=== PATIENT | female | born 1975 | race Caucasian/White ===

== ENCOUNTER → 2016-04-30 | Outpatient (CLI) | payer OTHER ==
[~2016-04-30] MED LIST: CARV3.122 PO; GABA-113 PO; GADAVIST IV PRN; NORETAB25 PO; TRAM-10 PO
--- NOTE | 2016-04-30 13:02 | DIAGNOSTIC IMAGING REPORT ---
MRI OF THE LUMBAR SPINE WITH AND WITHOUT CONTRAST CLINICAL HISTORY: Left sided sciatica. COMPARISON STUDY: No previous studies for comparison. TECHNIQUE: Utilizing a 1.5 Fauzia magnet and dedicated coil, multiplanar, multiecho imaging of the lumbar spine was performed before and after uneventful IV administration of 6.5 mL of Gadavist. FINDINGS: For purposes of numbering on this exam, the L5-S1 disc space is assigned to axial image 23 of 26. Vertebral body heights are maintained. There is no intracanalicular mass, fluid collection or abnormal enhancement. The conus terminates at the upper L1 level. Paravertebral soft tissues are unremarkable. L1-2: The central canal and neural foramen are patent. L2-3: The central canal and neural foramen are patent L3-4: The central canal and neural foramen are patent. L4-5: The central canal and neural foramen are patent. L5-S1: There is a large central/left paracentral disc protrusion that results in moderate narrowing of the central canal and marked narrowing of the left lateral recess. The neural foramen are patent. IMPRESSION: 1. Large central/left paracentral disc protrusion at L5-S1 that results in moderate narrowing of the central canal and marked narrowing of the left lateral recess. 2. Otherwise, unremarkable MRI of the lumbar spine. Electronically signed by: August Covington M.D. 04/30/2016 1:00 PM Dictated Date/Time: 04/30/2016 12:57 PM
== END | disposition home or self-care (01) ==
LOC: C.MRI 12:06
PROVIDERS: ATTEND Family Medicine
DX: M54.30 Sciatica, unspecified side (principal)

== ENCOUNTER → 2016-07-08 | Outpatient (CLI) | payer OTHER ==
[~2016-07-08] MED LIST changes: -GADAVIST IV PRN; +HYDR-5688 PO
== END | disposition home or self-care (01) ==
LOC: C.PAPS 10:50
PROVIDERS: ATTEND Obstetrics & Gynecology
DX: Z01.419 Encounter for gynecological examination (general) (routine) without abnormal findings (principal)

== ENCOUNTER 2016-07-23 11:10 | Observation (INO) | payer OTHER ==
[2016-07-09 15:20] VITALS: BMI 24.0
[2016-07-10 14:44] LABS: BASO % 0.3 %; BASO ABS # 0.03 K/uL (0-0.2); COMPLETE YES; EOS % 2.4 %; HEMATOCRIT 40.3 % (37-47); IG% 0.3 %; LYMPH % 24.3 %; LYMPH ABS # 2.48 K/uL (1.2-3.4); MEAN CELL VOLUME 92.2 fL (80-100); MEAN CORPUSCULAR HEMOGLOBIN 30.9 pg (25-34); MEAN CORPUSCULAR HGB CONC 33.5 g/dl (32-36); MEAN PLATELET VOLUME 12.5 fL (7.4-10.4); MONO % 4.3 %; NEUT % 68.4 %; PLATELET COUNT 247 K/uL (130-400); RED BLOOD COUNT 4.37 M/uL (4.2-5.4); WHITE BLOOD COUNT 10.21 K/uL (4.8-10.8)
[2016-07-10 14:46] LABS: PREG INTERNAL NEGATIVE QC NEG CLEAR BACKGROUND; PREG INTERNAL POSITIVE QC POS CONTROL LINE
--- NOTE | 2016-07-22 12:16 | HISTORY & PHYSICAL EXAMINATION ---
DATE OF ADMISSION: 07/23/2016 CHIEF COMPLAINT: Back and lower extremity difficulty, paresthesias, numbness, tingling. She has a large disc herniation, left hand side L5-S1. She is set for surgery L5-S1 discectomy without fusion at [facility] on the . PAST MEDICAL HISTORY: Positive for asthma, contact dermatitis, hypertension, migraine. SOCIAL HISTORY: Negative smoking, negative EtOH. MEDICATIONS: Include control pill called Ortho, Micronor, Coreg, and tramadol. REVIEW OF SYSTEMS: She denies any fever, sweats, chills, any bowel and bladder incontinence. No urgency, frequency, dysuria. Denies any chest pain, angina. Denies asthma, wheezing, shortness of breath. Her major positive review is her musculoskeletal, issues with back and lower extremity difficulties consistent with her herniation. PAST SURGICAL HISTORY: Laparoscopy and wisdom teeth. PHYSICAL EXAMINATION: GENERAL: She is 5 feet 3 inches, 128 pounds. She is in distress. VITAL SIGNS: Blood pressure 130/80, pulse of 80, respiratory rate 16. HEENT: Pupils react to light and accommodation. Ear, nose and throat clear. CARDIAC: Normal S1, S2. No S3. ABDOMEN: Soft, nontender. MUSCULOSKELETAL: She has decreased range of motion, flexion and extension. She has significant pain with straight leg raising. She has an absent Achilles reflex on the left hand side. Motor loss atrophy as well. IMAGES: Reviewed. She has a large disc herniation of lumbar spine L5-S1. DISPOSITION: Includes: 1. Instructions, precautions, education as to her pathology. 2. She is scheduled for surgery, lumbar spine discectomy at L5-S1 on the left hand side at [facility].
[~2016-07-23] VITALS: Ht 162.6 cm; Wt 62.7 kg
--- NOTE | 2016-07-23 09:51 | History & Physical Bridge Note ---
H&P Re-Evaluation Bridge Note: I have examined the patient, reviewed the History & Physical and in the interval since the performance of the History & Physical I have noted the following changes of clinical significance: No changes noted
[~2016-07-23 11:10] MED LIST changes: +CEFAZOLIN 2000 MG/60 ML D5W 60 ML IV SCH; -HYDR-5688 PO; +LACTATED RINGER'S 1000ML 1,000 ML IV SCH; +NSS 1000ML IV SCH
[2016-07-23 11:30] VITALS: BP 160/90; PULSE 66; TEMP 37; O2SAT 100; Ht 162.6 cm; Wt 62.7 kg
[2016-07-23] MEDS ORDERED: LIDOCAINE HCL 2% 2 ML VIAL (20MG/ML) ONE (12:02)
[2016-07-23] MEDS ORDERED: ROCURONIUM BROMIDE 10 MG/ML 5 ML VIAL ONE (12:02)
[2016-07-23] MEDS ORDERED: PROPOFOL IV EMULSION 10 MG/ML 20 ML VIAL IV ONE (12:02)
[2016-07-23] MEDS ORDERED: FENTANYL CITRATE INJ 50 MCG/1 ML 2 ML VIAL ONE ×2 (12:03)
[2016-07-23] MEDS ORDERED: MIDAZOLAM HCL 1 MG/ML 2ML VIAL ONE (12:03)
[2016-07-23] MEDS ORDERED: MoRPHine SULFATE 4 MG/ML 1 ML CARP\\VIAL IV STA (13:09)
[2016-07-23] MEDS ORDERED: ONDANSETRON INJ 2 MG/ML 2 ML VIAL IV STA (13:10)
[2016-07-23] MEDS ORDERED: LACTATED RINGER'S 1000ML 1,000 ML IV PRN (13:12)
[2016-07-23] MEDS ORDERED: MoRPHine SULFATE 10 MG/ML CARP/VIAL IV PRN (13:15)
[2016-07-23] MEDS ORDERED: HYDROmorphone INJ 1 MG/ML SYR IV PRN ×2 (13:15→15:15)
[2016-07-23] MEDS ORDERED: DiphenhydrAMINE HCL 50 MG/ML VIAL IV PRN (13:15)
[2016-07-23] MEDS ORDERED: SCOPOLAMINE 1.5 MG TDSY TD ONE ×2 (13:15→13:17)
[2016-07-23] MEDS ORDERED: MoRPHine SULFATE 4 MG/ML 1 ML CARP\\VIAL ONE (13:16)
[2016-07-23] MEDS ORDERED: ONDANSETRON INJ 2 MG/ML 2 ML VIAL ONE ×2 (13:17→13:59)
[2016-07-23] MEDS ORDERED: VANCOMYCIN HCL 1000MG/20ML VIAL ONE (13:32)
[2016-07-23] MEDS ORDERED: BUPIVACAINE/EPINEPHRINE 0.5% MPF 1:200,000 30 ML VIAL ONE (13:32)
[2016-07-23] MEDS ORDERED: GELATIN SPONGE SZ 100 ONE (13:32)
[2016-07-23] MEDS ORDERED: THROMBIN FOR SOLN 20000 UNIT KIT ONE (13:32)
[2016-07-23] MEDS ORDERED: BACITRACIN 50000 UNIT VIAL ONE (13:33)
[2016-07-23] MEDS ORDERED: METOCLOPRAMIDE HCL INJ 5 MG/ML 2 ML VIAL ONE (13:59)
[2016-07-23] MEDS ORDERED: DEXAMETHASONE SOD INJ 4 MG/ML VIAL ONE (13:59)
[2016-07-23] MEDS ORDERED: DiphenhydrAMINE HCL 50 MG/ML VIAL ONE (13:59)
[2016-07-23] MEDS ORDERED: GLYCOPYRROLATE INJ 0.2 MG/ML VIAL ONE (14:30)
[2016-07-23] MEDS ORDERED: NEOSTIGMINE METHYLSULFATE 5 MG/5 ML SYR ONE (14:30)
--- NOTE | 2016-07-23 14:31 | DIAGNOSTIC IMAGING REPORT ---
INTRAOPERATIVE RADIOGRAPH CLINICAL HISTORY: L5-S1 discectomy. Fluoroscopy time: 3 seconds. FINDINGS: A single spot fluoroscopic view of the lower lumbar spine is presented. A surgical probe projects posteriorly at L5-S1. IMPRESSION: Intraoperative image from L5 -S1 discectomy as above. Electronically signed by: Manpreet Watts M.D. 07/23/2016 2:29 PM Dictated Date/Time: 07/23/2016 2:28 PM
--- NOTE | 2016-07-23 15:04 | [facility] Post Operative Brief Note ---
Immediate Operative Summary Operative Date Jul 23, 2016. Pre-Operative Diagnosis large disc herniation of lumbar spine L5-S1 Post-Operative Diagnosis large disc herniation of lumbar spine L5-S1 Procedure(s) Performed L5-S1 Discectomy Surgeon Dr. Brad Levi Informatics Scientist Surgeon(s) Carson Mayorga PA-C Estimated Blood Loss 30ML Findings disc herniation Specimens none per surgeon Dr. Brad Levi Complication(s) None Disposition Recovery Room / PACU
[2016-07-23] MEDS ORDERED: ACETAMINOPHEN 325 MG TAB PO PRN (15:15)
[2016-07-23] MEDS ORDERED: HYDROmorphone INJ 2 MG/ML SYR/VIAL IV PRN (15:15)
[2016-07-23] MEDS ORDERED: OXYCODONE/ACETAMINOPHEN 5-325 TAB PO PRN (15:15)
[2016-07-23] MEDS ORDERED: PROMETHAZINE HCL INJ 12.5 MG in SODIUM CHLORIDE 0.9% 50ML 50 ML IV PRN (15:15)
[2016-07-23] MEDS ORDERED: LORAZEPAM INJ 1 MG in SYRINGE 0 ML IV PRN (15:15)
[2016-07-23] MEDS ORDERED: LORAZEPAM 1 MG TAB PO PRN (15:15)
[2016-07-23] MEDS ORDERED: MAGNESIUM HYDROXIDE SUSP 30 ML UDC PO PRN (15:15)
[2016-07-23] MEDS ORDERED: ONDANSETRON INJ 2 MG/ML 2 ML VIAL IV PRN (15:15)
[2016-07-23] MEDS ORDERED: HYDROCODONE/ACETAMOPHEN 5/325MG TAB PO PRN ×2 (15:15)
[2016-07-23] MEDS ORDERED: METOCLOPRAMIDE HCL INJ 5 MG/ML 2 ML VIAL IV PRN (15:15)
--- NOTE | 2016-07-23 15:17 | OPERATIVE REPORT ---
DATE OF OPERATION: 07/23/2016 PREOPERATIVE DIAGNOSIS: Disk herniation L5-S1, left. POSTOPERATIVE DIAGNOSIS: Same. PROCEDURE: Discectomy L5-S1, left. SURGEON: Dr. Levi. COMPLICATIONS: Zero. BLOOD LOSS: 30 mL. [employer] LEVERMAN: Carson Mayorga PA-C. ANESTHETIC: General. DESCRIPTION OF PROCEDURE: The patient was taken to the operating room and general intubated anesthetic provided to the patient, placed prone, prepped and draped sterile. We made a skin incision, fascial incision, brought in C-arm for localization. We did an upbiting laminotomy, downbiting laminotomy and foraminotomy, we retracted the nerve root medial direction, did a partial mini facetectomy, took off the ligamentum flavum. The disk herniation was significant right underneath the S1 nerve root. We did use a 15 scalpel blade, various types pituitary rongeurs and getting out of free fragment disk. I probed, we looked for any type of free fragments, no more to be found. We then irrigated thoroughly, closed over a fat graft with vancomycin powder and Hemovac drain with 1 Vicryl suture, 2-0 in the subcuticular layer, 3-0 nylon on the skin, sterile dressing applied. The patient returned to PACU stable. No apparent interoperative complications. Sponge and needle count correct at the close. I attest to the content of the Intraoperative Record and any orders documented therein. Any exceptio ns are noted below.
[2016-07-23] MEDS: FENTANYL CITRATE INJ 50 MCG/1 ML 2 ML VIAL IV PRN ×2 (15:32→15:37)
--- NOTE | 2016-07-23 15:40 | Anesthesiology Progress Note ---
Anesthesia Post Op Note Date & Time Jul 23, 2016 at 15:38 Vital Signs Pain Intensity: 5 Vital Signs Past 12 Hours Date Time Temp Pulse Resp B/P Pulse Ox O2 Delivery O2 Flow Rate FiO2 07/23/16 15:35 64 15 129/83 100 Mask 10 07/23/16 15:25 73 17 123/80 100 Mask 10 07/23/16 15:15 36.1 84 16 126/71 100 Mask 10 07/23/16 11:30 37 66 16 160/90 100 Room Air Notes Mental Status: alert / awake / arousable, participated in evaluation Pt Amnestic to Procedure: Yes Nausea / Vomiting: adequately controlled Pain: adequately controlled Airway Patency, RR, SpO2: stable & adequate BP & HR: stable & adequate Hydration State: stable & adequate Anesthetic Complications: no major complications apparent Pt doing well. Radicular pain that she had pre-op is gone; now only with back pain which is improving. No nausea.
[2016-07-23] MEDS ORDERED: IV FLUIDS COMPLETED PRN (16:00)
[2016-07-23 16:15] VITALS: O2SAT 100
[2016-07-23 16:56] VITALS: BP 136/83; PULSE 79; TEMP 37; O2SAT 98
[2016-07-23] MEDS: OXYCODONE/ACETAMINOPHEN 5-325 TAB PO PRN ×2 (17:05→22:16)
[2016-07-23] MEDS: SODIUM CHLORIDE 0.9% 1000ML 1,000 ML IV SCH (17:10)
[2016-07-23 18:15] VITALS: BP 125/76; PULSE 72; TEMP 37.1; O2SAT 95
[2016-07-23] MEDS: KETOROLAC TROMETHAMINE 30 MG/ML VIAL IV SCH ×2 (18:16→23:44)
[2016-07-23 19:31] VITALS: BP 120/70; PULSE 78; TEMP 37.3; O2SAT 97
[2016-07-23] MEDS: GABAPENTIN 300 MG CAP PO SCH (20:34)
[2016-07-23] MEDS ORDERED: CARVEDILOL 3.125 MG TAB PO SCH (21:00)
[2016-07-23] MEDS ORDERED: NORETHINDRONE PO SCH (21:00)
[2016-07-23] MEDS: CEFAZOLIN IV 1,000 MG in DEXTROSE 5% 50ML 50 ML IV SCH (22:14)
[2016-07-23] MEDS: DEXAMETHASONE INJ 10 MG in SYRINGE 0 ML IV SCH (22:14)
[2016-07-23 23:10] VITALS: BP 96/60; PULSE 58; TEMP 36.7; O2SAT 94
[2016-07-24] MEDS: SODIUM CHLORIDE 0.9% 1000ML 1,000 ML IV SCH (03:12)
[2016-07-24] MEDS: OXYCODONE/ACETAMINOPHEN 5-325 TAB PO PRN ×3 (03:16→14:43)
[2016-07-24 03:29] VITALS: BP 97/60; PULSE 62; TEMP 36.8; O2SAT 98
[2016-07-24] MEDS ORDERED: BISACODYL 10 MG SUPP PR PRN (06:00)
[2016-07-24] MEDS ORDERED: BISACODYL 5 MG TABEC PO PRN (06:00)
[2016-07-24] MEDS: CEFAZOLIN IV 1,000 MG in DEXTROSE 5% 50ML 50 ML IV SCH ×2 (06:07→13:45)
[2016-07-24] MEDS: DEXAMETHASONE INJ 10 MG in SYRINGE 0 ML IV SCH ×2 (06:08→13:45)
[2016-07-24] MEDS: KETOROLAC TROMETHAMINE 30 MG/ML VIAL IV SCH ×2 (06:08→12:28)
[2016-07-24 07:06] VITALS: BP 104/67; PULSE 59; TEMP 36.6; O2SAT 100
--- NOTE | 2016-07-24 07:32 | Discharge Instructions ---
Discharge Instructions Date of Service Jul 24, 2016. Admission Reason for Admission: Lumbar Disc Herniation L5-S1 Discharge Discharge Diagnosis / Problem: same Discharge Goals Goal(s): Improve function Activity Recommendations Activity Limitations: as noted below Lifting Limitations: until after follow-up appointment Exercise/Sports Limitations: until after follow-up appointment May Resume Sexual Activity: after follow-up appointment Shower/Bathe: keep incision dry Driving or Machine Use: home, rest, recover . Instructions / Follow-Up Instructions / Follow-Up MEDICATIONS: Please take your prescriptions as instructed at your pre-op appointment. SPECIAL CARE: The following information is intended to answer some of the common questions and concerns regarding your surgery. Each patient is an individual and receives individual counselling throughout the course of treatment, from diagnosis to surgery all the way through recovery. What follows is not an exhaustive list, but should be a useful guide to some of the common questions and concerns patients have regarding their surgeries. These are not provided to keep you from calling us; rather, they give you something accurate and concrete to reference as you recover from your procedure. If you need us, we are available to you. As always, if you are not sure about something, call us at [phone]. MEDICAL EMERGENCIES: For these conditions, call 911 or go to your local hospital-based Emergency Department - not [facility] or equivalent. * Paralysis * Severe chest pain or difficulty breathing * Swelling or redness of either leg Spine procedures can be rather complex and though complications are rare, they do occur. In such cases, effective advice regarding emergency situations cannot always be addressed over the telephone. You may be referred to the emergency department for more effective management of your problem. Activity Limitations: It is important to give your body time to heal, so please limit your activities : * In general, don't do anything that moves your spine too much. You should avoid contact sports, twisting or heavy lifting while you recover. * 5-10 pounds is all you should attempt to lift. * You should not plan on driving for approximately 3 weeks and you should avoid traveling more than 30-45 minutes at a time. Longer trips should be broken down with walking breaks spaced appropriately. * Physical therapy is not usually required. * Walking and good posture practices will help you recover and regain your function. * Avoid straining or sudden changes in position. * In general, the goal is to take it easy and recover. Don't cause any new problems. Just relax. Showers: * Do not take a bath, use a Jacuzzi or hot tub or otherwise submerge your incision. * It is usually safe to take a shower 4-5 days after your surgery. * Your incision does not require any special creams or ointments. * Simply clean it with soap and water, dry and re-dress with a clean bandage afterwards. Incision: * Keep incision clean, dry and protected until your first follow-up appointment. * Some amount of drainage and redness is normal. Any drainage should be fairly clear and not have a foul odor. * If you feel anything is wrong or you have excessive drainage, please call us. * Your stitches and alex will be removed 10-14 days after your surgery. At the time of your first post-op visit. * Neck surgeries are typically closed with a suture underneath the skin. The steri-strips over the incision should be maintained until we see you in the office. Bracing: * You may be provided with a back or neck brace to encourage good posture and prevent injury. It will remind you not to do too much as you heal and will alert others to the fact that you have had a surgery. * Back braces may be removed for showers and when you are resting at home. They must be worn when you are walking around for any period of time or for travel. * For neck surgery, you will likely be provided with two cervical collars. The soft collar ([place] or foam rubber) is worn most commonly throughout the day and while sleeping. The plastic collar (provided at the hospital) is for showering/bathing. * Except while eating, collars should remain in place. More specifically, bracing is provided for a purpose and should be worn. * Please obtain your brace or collars prior to your operation and bring them to the hospital with you on the day of surgery. * You should also bring your collars to your post-op appointment with Dr. Levi. You should always take good care of your body and practice healthy habits, especially following surgery. You should: * Follow your doctor's treatment plan * Sit and stand properly with good posture (ears over shoulders, shoulders over hips) Don't slouch * Learn to lift correctly * Exercise regularly (low-impact aerobic exercise is especially good, but check with your doctor first) * Generally, be up and walking for 5-10 minutes at a time at least 3-4 times per day from the day you get home * Increasing walking to tolerance until you can walk for 20-30 minutes at a time * Attain and maintain a healthy body weight * Eat healthy foods ( a well-balanced, low-fat diet rich in fruits and vegetables) and get enough calcium * Avoid excessive use of alcohol When to call our office - If you notice any of the following: * Increased pain not relieve by pain medicine * Fevers greater then 100 degrees F, chills or flu symptoms * Increased redness around incision * Drainage from the incision that is not clear * Any foul smelling drainage * Swelling or fluid collection beneath the skin Miscellaneous: * In the hospital, you may be given a walker or cane for support while walking. These are temporary needs and are intended to prevent injuries due to falls. You may discontinue them when you feel strong and steady enough on your feet. * Sleep in a comfortable position. We find that many patients find a lounge chair or recliner with several pillows to be beneficial in the early post-operative period. * The support stockings should be used for 7-10 days and may be discontinued when you are back to walking more and conducting usual household activities. No problem is insignificant. We are here to help you and get you well. Contact us at [phone]. Definitions: Foraminotomy: If part of the disc or a bone spur (osteophyte) is pressing on a nerve as it leaves the vertebra (through an exit called the foramen), a foraminotomy may be done. Otomy means "to make an opening." A foraminotomy is making the opening of the foramen larger, so the nerve can exit without being compressed. Laminotomy: Similar to the foraminotomy, a laminotomy makes a larger opening, this time in your bony plate protecting your spinal canal and spinal cord (the lamina). The lamina may be pressing on your nerve, so the surgeon may make more room for the nerves using a laminotomy. Laminectomy: Sometimes, a laminotomy is not sufficient. The surgeon may need to remove all or part of the lamina. This procedure is called a laminectomy. This can often be done at many levels without any harmful effects. Current Hospital Diet Patient's current hospital diet: Regular Diet Discharge Diet Recommended Diet: Regular Diet Procedures Procedures Performed: L5-S1 Discectomy Pending Studies Studies pending at discharge: no Medical Emergencies . Who to Call and When: Medical Emergencies: If at any time you feel your situation is an emergency, please call 911 immediately. . Non-Emergent Contact Non-Emergency issues call your: Surgeon . "Provider Documentation" section prepared by Brad Levi. . VTE Core Measure Inpt VTE Proph given/why not?: Treatment not indicated
--- NOTE | 2016-07-24 08:02 | Anesthesiology Progress Note ---
Anesthesia Post Op Note Date & Time Jul 24, 2016 at 08:01 Vital Signs Pain Intensity: 5.0 Vital Signs Past 12 Hours Date Time Temp Pulse Resp B/P Pulse Ox O2 Delivery O2 Flow Rate FiO2 07/24/16 07:06 36.6 59 16 104/67 100 Room Air 07/24/16 03:29 36.8 62 16 97/60 98 Room Air 07/23/16 23:40 Room Air 07/23/16 23:10 36.7 58 16 96/60 94 Room Air Notes Mental Status: alert / awake / arousable, participated in evaluation Pt Amnestic to Procedure: Yes Nausea / Vomiting: adequately controlled Pain: adequately controlled Airway Patency, RR, SpO2: stable & adequate BP & HR: stable & adequate Hydration State: stable & adequate Anesthetic Complications: no major complications apparent
[2016-07-24] MEDS ORDERED: POLYETHYLENE (MIRALAX) 17 GM PACK PO SCH (09:00)
[2016-07-24] MEDS: GABAPENTIN 300 MG CAP PO SCH ×2 (09:32→13:45)
[2016-07-24 09:59] VITALS: BP 123/72; PULSE 71; O2SAT 99
[2016-07-24 11:50] VITALS: BP 105/65; PULSE 67; TEMP 37; O2SAT 96
--- NOTE | 2016-07-24 12:04 | DISCHARGE SUMMARY ---
SUBJECTIVE: Minimal complaints of lower extremity difficulty. No shortness of breath or chest pain. OBJECTIVE: Vital signs stable, alert, oriented. ASSESSMENT: Status post discectomy lumbar spine. DISPOSITION: We will get her up and ambulatory today. Dressing change, pull her Hemovac drain and discharge her home later today. Instructions, precautions provided. Prescriptions provided. She has a back brace for support as well.
[2016-07-24 14:07] VITALS: BP 105/65; PULSE 67; TEMP 37; O2SAT 96
[2017-03-04] MEDS ORDERED: HYDR-5688 PO (11:00)
== END 2016-07-24 14:43 | disposition home or self-care (01) ==
LOC: ENRESERVTM → ENRESERVDT → C.ACU 11:10 → C.3E 15:06
PROVIDERS: ADMIT Orthopaedic Surgery Orthopaedic Surgery of the Spine; ATTEND Orthopaedic Surgery Orthopaedic Surgery of the Spine
DX: M51.27 Other intervertebral disc displacement, lumbosacral region (principal); I10 Essential (primary) hypertension; Z68.24 Body mass index [BMI] 24.0-24.9, adult; Z88.1 Allergy status to other antibiotic agents; Z79.3 Long term (current) use of hormonal contraceptives; Z91.040 Latex allergy status

== ENCOUNTER → 2016-10-05 | Outpatient (CLI) | payer OTHER ==
[~2016-10-05] MED LIST changes: -CEFAZOLIN 2000 MG/60 ML D5W 60 ML IV SCH; -LACTATED RINGER'S 1000ML 1,000 ML IV SCH; -NSS 1000ML IV SCH
== END | disposition home or self-care (01) ==
LOC: C.PATHSPEC 15:49
PROVIDERS: ATTEND Obstetrics & Gynecology
DX: R87.612 Low grade squamous intraepithelial lesion on cytologic smear of cervix (LGSIL) (principal)

== ENCOUNTER → 2017-02-17 | Outpatient (CLI) | payer OTHER ==
--- NOTE | 2017-02-17 19:52 | DIAGNOSTIC IMAGING REPORT ---
LUMBAR SPINE W/O CONTRAST CLINICAL HISTORY: 41 years-old Female presenting with REHERNIATION. TECHNIQUE: Multisequence, multiplanar MR imaging of the lumbar spine was performed without the use of intravenous contrast. IV contrast: None. COMPARISON: 04/30/2016. FINDINGS: Localizer images: Unremarkable. Normal lumbar lordosis. Vertebral bodies maintain normal height, alignment, and bone marrow signal intensity. Intervertebral disc spaces preserved with the exception of disc desiccation, height loss, and focal disc protrusion at L5-S1. At this level of the paracentral disc protrusion is less prominent with less associated mass effect than on prior exam. No significant spinal canal narrowing, although the disc protrusion appears to exert mass effect on the transiting left S2 nerve root. The remaining levels demonstrate no neural foraminal or spinal canal stenosis. Paraspinal muscular edema evident in the sacral region. Nonspecific superficial subcutaneous edema potentially with a surgical incision site in the posterior back. No associated fluid collection. No epidural fluid collection. Spinal cord ends in good position at the superior endplate of L1. Cauda equina normal in morphology. IMPRESSION: Paracentral disc protrusion at L5-S1 overall smaller in size with less associated mass effect than on the prior exam. However, mass effect on the transiting left S2 nerve root is suggested. Remaining levels are normal. Electronically signed by: Forrest Uriarte M.D. 02/17/2017 7:51 PM Dictated Date/Time: 02/17/2017 7:46 PM
== END | disposition home or self-care (01) ==
LOC: C.MRI 18:18
PROVIDERS: ATTEND Orthopaedic Surgery Orthopaedic Surgery of the Spine
DX: M51.26 Other intervertebral disc displacement, lumbar region (principal)

== ENCOUNTER → 2017-03-23 | Outpatient (CLI) | payer OTHER ==
[~2017-03-23] MED LIST changes: -CARV3.122 PO; +HYDR-5688 PO
[2017-03-23 13:52] LABS: PREG INTERNAL NEGATIVE QC NEG CLEAR BACKGROUND; PREG INTERNAL POSITIVE QC POS CONTROL LINE
[2017-03-23 14:38] LABS: BASO % 0.2 %; BASO ABS # 0.03 K/uL (0-0.2); COMPLETE YES; EOS % 1.5 %; HEMATOCRIT 39.6 % (37-47); IG% 0.2 %; LYMPH % 22.1 %; LYMPH ABS # 2.76 K/uL (1.2-3.4); MEAN CELL VOLUME 92.7 fL (80-100); MEAN CORPUSCULAR HEMOGLOBIN 30.7 pg (25-34); MEAN CORPUSCULAR HGB CONC 33.1 g/dl (32-36); MEAN PLATELET VOLUME 12.4 fL (7.4-10.4); MONO % 3.9 %; NEUT % 72.1 %; PLATELET COUNT 253 K/uL (130-400); RED BLOOD COUNT 4.27 M/uL (4.2-5.4); WHITE BLOOD COUNT 12.48 K/uL (4.8-10.8)
== END | disposition home or self-care (01) ==
LOC: C.LAB1850 12:48
PROVIDERS: ATTEND Orthopaedic Surgery Orthopaedic Surgery of the Spine
DX: Z01.812 Encounter for preprocedural laboratory examination (principal)

== ENCOUNTER 2017-03-25 05:26 | Inpatient (IN) | payer OTHER ==
[2017-03-04 11:12] VITALS: Ht 161.3 cm; Wt 62.7 kg
--- NOTE | 2017-03-24 15:07 | HISTORY & PHYSICAL EXAMINATION ---
DATE OF ADMISSION: 03/25/2017 CHIEF COMPLAINT: Low back, left hip and left leg pain. HISTORY OF PRESENT ILLNESS: Vonnie is a 41-year-old female complains mostly of pain in her left leg and left hip. It has been going on since early February. No injuries or falls. She does have a history of prior diskectomy back in the spring. Pain in her leg is progressively getting worse. It is mostly a description of numbness and tingling, slight amount of weakness as well. PAST MEDICAL HISTORY: Positive for hypertension and asthma. PAST SURGICAL HISTORY: Includes a laparoscopy, wisdom teeth removed. ALLERGIES: SHE HAS ALLERGIES TO LATEX AND ERYTHROMYCIN, nickel, cobolt, gold CURRENT MEDICATION LIST: Includes Ortho Micronor, which is control; Coreg and tramadol. FAMILY MEDICAL HISTORY: Positive for heart disease, stroke, diabetes. Negative for cancer. SOCIAL HISTORY: She is , lives alone, drinks 1-2 drinks a week. No tobacco use. Active lifestyle. REVIEW OF SYSTEMS: CONSTITUTIONAL: Positive for fatigue. PSYCHIATRIC: Positive for sleep problems. NEUROLOGICAL: Positive for numbness and tingling. PHYSICAL EXAMINATION: NEUROLOGICAL: She has a moderate amount of pain with palpation and percussion over the lower lumbar segments. She has mild paresthesias, numbness and tingling down her left leg which radiates down to the top of her left foot. She had decreased range of motion in flexion and extension of the spine. She has pain with straight leg raises on the right and left. Slight loss of sensation as well. IMAGING DATA: X-rays show a low grade anterior listhesis at L5-S1. She has a degenerative segment at that level as well. Evidence of recurrent disk herniation at L5-S1. 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 PLAN: At this time, we will for her PLIF procedure to correct this problem. We went over the surgery, the risks, the benefits and anticipated recovery time. She is in full agreement with it. We expect that she will be in [facility] for approximately 2 days. We gave her a back brace, take with her for postop. We will follow her back up in the office postoperatively 10-14 days. ____ suture removal and evaluation at that time. ATTILA
[~2017-03-25] VITALS: Ht 161.3 cm; Wt 62.7 kg
[2017-03-25] VITALS (9 sets, daily range): BP systolic 95–144; BP diastolic 60–86; PULSE 64–89; TEMP 36.5–37.4; O2SAT 91–100
[2017-03-25] MEDS ORDERED: CEFAZOLIN 2000MG IV PUSH 10 ML IV SCH (06:00)
[2017-03-25] MEDS ORDERED: NSS 1000ML IV SCH (06:00)
[2017-03-25] MEDS ORDERED: LACTATED RINGER'S 1000ML 1,000 ML IV SCH (06:00)
[2017-03-25] MEDS ORDERED: SCOPOLAMINE 1.5 MG TDSY TD ONE ×2 (06:55→07:15)
[2017-03-25] MEDS ORDERED: VANCOMYCIN HCL 1000MG/20ML VIAL ONE (07:09)
[2017-03-25] MEDS ORDERED: BACITRACIN 50000 UNIT VIAL ONE (07:09)
[2017-03-25] MEDS ORDERED: THROMBIN FOR SOLN 20000 UNIT KIT ONE (07:09)
[2017-03-25] MEDS ORDERED: GELATIN SPONGE SZ 100 ONE (07:09)
[2017-03-25] MEDS ORDERED: BUPIVACAINE/EPINEPHRINE 0.5% MPF 1:200,000 30 ML VIAL ONE (07:10)
[2017-03-25] MEDS ORDERED: ONDANSETRON INJ 2 MG/ML 2 ML VIAL IV PRN ×2 (07:15→10:30)
[2017-03-25] MEDS ORDERED: ATROPINE SULFATE 0.1 MG/ML 5ML SYR IV PRN (07:15)
[2017-03-25] MEDS ORDERED: HYDROmorphone INJ 2 MG/ML SYR/VIAL IV PRN (07:15)
[2017-03-25] MEDS ORDERED: LABETALOL HCL IV 5 MG/ML 20ML IV PRN (07:15)
[2017-03-25] MEDS ORDERED: PROMETHAZINE HCL INJ 12.5 MG in SODIUM CHLORIDE 0.9% 50ML 50 ML IV PRN ×2 (07:15→10:30)
[2017-03-25] MEDS ORDERED: FENTANYL CITRATE INJ 50 MCG/1 ML 2 ML VIAL ONE (07:20)
[2017-03-25] MEDS ORDERED: MIDAZOLAM HCL 1 MG/ML 2ML VIAL ONE (07:20)
[2017-03-25] MEDS ORDERED: HYDROmorphone INJ 2 MG/ML SYR/VIAL ONE (07:51)
[2017-03-25] MEDS ORDERED: PROPOFOL IV EMULSION 10 MG/ML 20 ML VIAL IV ONE (08:07)
[2017-03-25] MEDS ORDERED: LARYING-O-JET KIT (LTA) ONE ×2 (08:07)
[2017-03-25] MEDS ORDERED: DEXAMETHASONE SOD INJ 4 MG/ML VIAL ONE (08:07)
[2017-03-25] MEDS ORDERED: LIDOCAINE HCL 2% 2 ML VIAL (20MG/ML) ONE (08:07)
[2017-03-25] MEDS ORDERED: ONDANSETRON INJ 2 MG/ML 2 ML VIAL ONE (08:07)
[2017-03-25] MEDS ORDERED: ROCURONIUM BROMIDE 10 MG/ML 5 ML VIAL IV ONE (08:07)
[2017-03-25] MEDS ORDERED: EpHEDrine SULFATE 50MG/5ML SYR ONE (08:07)
--- NOTE | 2017-03-25 09:41 | DIAGNOSTIC IMAGING REPORT ---
INTRAOPERATIVE LUMBAR SPINE SINGLE VIEW CLINICAL HISTORY: L5-S1 POSTERIOR LUMBAR INTERBODY FUSION COMPARISON STUDY: 02/02/2017 FINDINGS: A single intraoperative fluoroscopic spot film of the lumbar spine was performed. 7 seconds of fluoroscopic time was utilized. The single view reveals postsurgical changes of an L5-S1 discectomy and interbody fusion. There are pedicle screws present at the L5 and S1 levels. Posterior retractors, and radiopaque sponge markers are visualized. IMPRESSION: Postsurgical changes at the L5-S1 level. Electronically signed by: Zachariah Villagran M.D. 03/25/2017 9:40 AM Dictated Date/Time: 03/25/2017 9:38 AM
[2017-03-25] MEDS ORDERED: GLYCOPYRROLATE INJ 0.2 MG/ML VIAL ONE (10:03)
[2017-03-25] MEDS ORDERED: NEOSTIGMINE METHYLSULFATE 1 MG/ML 10ML VIAL ONE (10:03)
[2017-03-25] MEDS ORDERED: SODIUM CHLORIDE 0.9% 1000ML 1,000 ML IV SCH (10:20)
--- NOTE | 2017-03-25 10:22 | [facility] Post Operative Brief Note ---
Immediate Operative Summary Operative Date Mar 25, 2017. Pre-Operative Diagnosis recurrent disk instability of the lumbar spine at L5-S1 Post-Operative Diagnosis recurrent disk instability of the lumbar spine at L5-S1 Procedure(s) Performed L5-S1 Posterior Lumbar Interbody Fusion Surgeon Dr. Brad Levi Producer Director Surgeon(s) Carson Mayorga PA-C Estimated Blood Loss 200ML Findings herniation and instability Specimens no specimens as noted by Dr. Brad Levi Complication(s) None Disposition Recovery Room / PACU
[2017-03-25] MEDS ORDERED: HYDROmorphone HCL 0.5MG/ML 50 ML CASSETTE IV PRN (10:30)
[2017-03-25] MEDS ORDERED: METOCLOPRAMIDE HCL INJ 5 MG/ML 2 ML VIAL IV PRN (10:30)
[2017-03-25] MEDS ORDERED: MAGNESIUM HYDROXIDE SUSP 30 ML UDC PO PRN (10:30)
[2017-03-25] MEDS ORDERED: LORAZEPAM 1 MG TAB PO PRN (10:30)
[2017-03-25] MEDS ORDERED: NALOXONE HCL 0.4 MG/1 ML VIAL/CARP IV PRN (10:30)
[2017-03-25] MEDS ORDERED: ACETAMINOPHEN 325 MG TAB PO PRN (10:30)
[2017-03-25] MEDS ORDERED: LORAZEPAM INJ 1 MG in SYRINGE 0 ML IV PRN (10:30)
[2017-03-25] MEDS ORDERED: HYDROmorphone HCL 0.5MG/ML 50 ML CASSETTE ONE (10:33)
--- NOTE | 2017-03-25 10:35 | OPERATIVE REPORT ---
DATE OF OPERATION: 03/25/2017 PREOPERATIVE DIAGNOSIS: Instability L5-S1 disc herniation L5-S1. POSTOPERATIVE DIAGNOSIS: Same. PROCEDURE: 1. Complete, foraminotomy, partial facetectomy L5-S1. 2. Pedicle screw instrumentation, L5-S1. 3. Posterior lumbar interbody fusion with implants L5-S1. 4. Posterolateral fusion. COMPLICATIONS: Zero. BLOOD LOSS: Less than 200 mL. SURGEON: Dr. Levi. DISTRIBUTION CENTER ASSOCIATE: Carson Mayorga PA-C. IMPLANTS USED: By the [employer]. Sponge and needle count correct at the close. DESCRIPTION OF PROCEDURE: The patient was taken to the operating room, a general intubated anesthetic provided to the patient, placed prone, scrubbed, prepped and draped sterile. I made a skin incision and fascial incision and dissected cleanly out over the spinous processes, facet joints, transverse processes. We had excellent visualization. We did a formal decompression and discectomy part of the procedure, we took off a significant amount of lamina upgoing and downgoing, completed and did fairly rigorous foraminotomies. The affected side was the left hand side. We retracted the dura and nerve root over a large disc herniation. We took this out in piecemeal fashion. There were significant pressure on the S1 nerve root and this was alleviated. We then safely got pedicle screws in 5 and S1 on the right and 5 and S1 on the left. The anatomic fit was appropriate and good fixation and good positioning. We then did the interbody position part of the procedure. We did complete discectomies at L5-S1. We packed the interval. We used biological PEEK implants at L5-S1 packed with autograft. They measured 22 in length, 7 mm in height and 8 mm across. Final x-rays were obtained. It looked like excellent positioning of our implants. We irrigated then bone grafted out over the transverse process and sacral ala with a combination of demineralized bone matrix and autograft. We placed some vancomycin deep to the wound. We closed fascia to fascia with #1 Vicryl suture, 2-0 in the subcuticular layer, 3-0 nylon on the skin. Sterile dressings applied. The patient returned to PACU stable. No apparent complications. I attest to the content of the Intraoperative Record and any orders documented therein. Any exception s are noted below.
[2017-03-25] MEDS ORDERED: HYDROmorphone INJ 1 MG/ML SYR ONE ×2 (10:37→11:03)
[2017-03-25 10:52] LABS: HEMATOCRIT 37.5 % (37-47)
--- NOTE | 2017-03-25 11:30 | Anesthesiology Progress Note ---
Anesthesia Post Op Note Date & Time Mar 25, 2017 at 11:30 Vital Signs Pain Intensity: 3 Vital Signs Past 12 Hours Date Time Temp Pulse Resp B/P (MAP) Pulse Ox O2 Delivery O2 Flow Rate FiO2 03/25/17 11:20 69 12 115/65 99 Nasal Cannula 4 03/25/17 11:10 37.2 66 12 100/67 99 Nasal Cannula 4 03/25/17 11:00 66 13 111/61 100 Nasal Cannula 4 03/25/17 10:50 67 18 122/67 100 Nasal Cannula 4 03/25/17 10:40 66 15 119/64 100 Oxymask 10 03/25/17 10:30 81 19 132/73 100 Oxymask 10 03/25/17 10:24 37.2 85 16 133/78 100 Oxymask 10 03/25/17 06:09 36.6 65 18 144/86 100 Room Air Notes Mental Status: alert / awake / arousable, participated in evaluation Pt Amnestic to Procedure: Yes Nausea / Vomiting: adequately controlled Pain: adequately controlled Airway Patency, RR, SpO2: stable & adequate BP & HR: stable & adequate Hydration State: stable & adequate Anesthetic Complications: no major complications apparent
[2017-03-25 13:53] LABS: CREATININE 0.86 mg/dl (0.60-1.20)
[2017-03-25] MEDS ORDERED: PNEUMOCOCCAL ADMINISTRATION CHARGE ONE (14:00)
[2017-03-25] MEDS ORDERED: PNEUMOCOCCAL POLYSACCHARIDES 25 MCG/0.5 ML VIAL/SYR IM. ONE (14:00)
[2017-03-25] MEDS: KETOROLAC TROMETHAMINE 30 MG/ML VIAL IV SCH ×2 (14:30→19:32)
[2017-03-25] MEDS: GABAPENTIN 300 MG CAP PO SCH ×2 (14:30→20:45)
[2017-03-25] MEDS: SODIUM CHLORIDE 0.9% 1000ML 1,000 ML IV SCH (14:33)
[2017-03-25] MEDS: DEXAMETHASONE INJ 10 MG in SYRINGE 0 ML IV SCH ×2 (15:50→23:12)
[2017-03-25] MEDS: CEFAZOLIN IV 1,000 MG in SYRINGE 0 ML IV SCH ×2 (15:50→23:12)
[2017-03-26] MEDS: KETOROLAC TROMETHAMINE 30 MG/ML VIAL IV SCH ×3 (01:29→13:49)
[2017-03-26] MEDS: SODIUM CHLORIDE 0.9% 1000ML 1,000 ML IV SCH (01:30)
[2017-03-26 03:09] VITALS: BP 93/56; PULSE 66; TEMP 36.5; O2SAT 97
[2017-03-26] MEDS ORDERED: DC PCA SCH (06:00)
[2017-03-26] MEDS ORDERED: BISACODYL 5 MG TABEC PO PRN (06:00)
[2017-03-26] MEDS ORDERED: BISACODYL 10 MG SUPP PR PRN (06:00)
[2017-03-26] MEDS ORDERED: NURSING VERBAL MED ORDER ONE (06:30)
[2017-03-26] MEDS: CEFAZOLIN IV 1,000 MG in SYRINGE 0 ML IV SCH (07:31)
[2017-03-26] MEDS: GABAPENTIN 300 MG CAP PO SCH ×3 (07:31→21:43)
[2017-03-26] MEDS: DEXAMETHASONE INJ 10 MG in SYRINGE 0 ML IV SCH ×3 (07:31→23:30)
[2017-03-26 07:37] VITALS: BP 98/60; PULSE 58; TEMP 36.7; O2SAT 98
[2017-03-26] MEDS: POLYETHYLENE (MIRALAX) 17 GM PACK PO SCH (07:58)
[2017-03-26] MEDS ORDERED: HYDROmorphone INJ 1 MG/ML SYR IV PRN (08:00)
[2017-03-26] MEDS: OXYCODONE/ACETAMINOPHEN 5-325 TAB PO PRN ×4 (08:00→23:43)
[2017-03-26] MEDS ORDERED: OXYCODONE/ACETAMINOPHEN 5-325 TAB PO PRN (08:00)
[2017-03-26] MEDS ORDERED: HYDROmorphone INJ 2 MG/ML SYR/VIAL IV PRN (08:00)
--- NOTE | 2017-03-26 08:03 | Anesthesiology Progress Note ---
Anesthesia Post Op Note Date & Time Mar 26, 2017 at 08:02 Vital Signs Pain Intensity: 6.0 Vital Signs Past 12 Hours Date Time Temp Pulse Resp B/P (MAP) Pulse Ox O2 Delivery O2 Flow Rate FiO2 03/26/17 03:09 36.5 66 14 93/56 (68) 97 Room Air 03/25/17 23:10 36.6 64 14 101/63 (76) 96 Room Air Notes Mental Status: alert / awake / arousable, participated in evaluation Pt Amnestic to Procedure: Yes Nausea / Vomiting: adequately controlled Pain: adequately controlled Airway Patency, RR, SpO2: stable & adequate BP & HR: stable & adequate Hydration State: stable & adequate Anesthetic Complications: no major complications apparent
--- NOTE | 2017-03-26 08:03 | ORTHOPEDICS PROGRESS NOTE ---
DATE: 03/26/2017 SUBJECTIVE: Alert, oriented, minimal complaints of pain, some lower extremity difficulty, some associated skeletal surgical pain. OBJECTIVE: Vital signs stable. Labs pending. ASSESSMENT: Status post rigorous lumbar spine surgery just done yesterday. DISPOSITION: Includes up and ambulate today. Advance her diet. [place] catheter removed, discontinue her fluids and tentatively home tomorrow.
[2017-03-26 11:05] VITALS: BP 104/67; PULSE 64; TEMP 36.6; O2SAT 94
--- NOTE | 2017-03-26 12:43 | Discharge Instructions ---
Discharge Instructions Date of Service Mar 26, 2017. Admission Reason for Admission: Lumbar Disc Herniation L5-S1 Discharge Discharge Diagnosis / Problem: herniation and instability Discharge Goals Goal(s): Decrease discomfort Activity Recommendations Activity Limitations: as noted below Lifting Limitations: until after follow-up appointment Exercise/Sports Limitations: until after follow-up appointment . Instructions / Follow-Up Instructions / Follow-Up MEDICATIONS: Please take your prescriptions as instructed at your pre-op appointment. SPECIAL CARE: The following information is intended to answer some of the common questions and concerns regarding your surgery. Each patient is an individual and receives individual counselling throughout the course of treatment, from diagnosis to surgery all the way through recovery. What follows is not an exhaustive list, but should be a useful guide to some of the common questions and concerns patients have regarding their surgeries. These are not provided to keep you from calling us; rather, they give you something accurate and concrete to reference as you recover from your procedure. If you need us, we are available to you. As always, if you are not sure about something, call us at [phone]. MEDICAL EMERGENCIES: For these conditions, call 911 or go to your local hospital-based Emergency Department - not [facility] or equivalent. * Paralysis * Severe chest pain or difficulty breathing * Swelling or redness of either leg Spine procedures can be rather complex and though complications are rare, they do occur. In such cases, effective advice regarding emergency situations cannot always be addressed over the telephone. You may be referred to the emergency department for more effective management of your problem. Activity Limitations: It is important to give your body time to heal, so please limit your activities : * In general, don't do anything that moves your spine too much. You should avoid contact sports, twisting or heavy lifting while you recover. * 5-10 pounds is all you should attempt to lift. * You should not plan on driving for approximately 3 weeks and you should avoid traveling more than 30-45 minutes at a time. Longer trips should be broken down with walking breaks spaced appropriately. * Physical therapy is not usually required. * Walking and good posture practices will help you recover and regain your function. * Avoid straining or sudden changes in position. * In general, the goal is to take it easy and recover. Don't cause any new problems. Just relax. Showers: * Do not take a bath, use a Jacuzzi or hot tub or otherwise submerge your incision. * It is usually safe to take a shower 4-5 days after your surgery. * Your incision does not require any special creams or ointments. * Simply clean it with soap and water, dry and re-dress with a clean bandage afterwards. Incision: * Keep incision clean, dry and protected until your first follow-up appointment. * Some amount of drainage and redness is normal. Any drainage should be fairly clear and not have a foul odor. * If you feel anything is wrong or you have excessive drainage, please call us. * Your stitches and alex will be removed 10-14 days after your surgery. At the time of your first post-op visit. * Neck surgeries are typically closed with a suture underneath the skin. The steri-strips over the incision should be maintained until we see you in the office. Bracing: * You may be provided with a back or neck brace to encourage good posture and prevent injury. It will remind you not to do too much as you heal and will alert others to the fact that you have had a surgery. * Back braces may be removed for showers and when you are resting at home. They must be worn when you are walking around for any period of time or for travel. * For neck surgery, you will likely be provided with two cervical collars. The soft collar ([place] or foam rubber) is worn most commonly throughout the day and while sleeping. The plastic collar (provided at the hospital) is for showering/bathing. * Except while eating, collars should remain in place. More specifically, bracing is provided for a purpose and should be worn. * Please obtain your brace or collars prior to your operation and bring them to the hospital with you on the day of surgery. * You should also bring your collars to your post-op appointment with Dr. Levi. You should always take good care of your body and practice healthy habits, especially following surgery. You should: * Follow your doctor's treatment plan * Sit and stand properly with good posture (ears over shoulders, shoulders over hips) Don't slouch * Learn to lift correctly * Exercise regularly (low-impact aerobic exercise is especially good, but check with your doctor first) * Generally, be up and walking for 5-10 minutes at a time at least 3-4 times per day from the day you get home * Increasing walking to tolerance until you can walk for 20-30 minutes at a time * Attain and maintain a healthy body weight * Eat healthy foods ( a well-balanced, low-fat diet rich in fruits and vegetables) and get enough calcium * Avoid excessive use of alcohol When to call our office - If you notice any of the following: * Increased pain not relieve by pain medicine * Fevers greater then 100 degrees F, chills or flu symptoms * Increased redness around incision * Drainage from the incision that is not clear * Any foul smelling drainage * Swelling or fluid collection beneath the skin Miscellaneous: * In the hospital, you may be given a walker or cane for support while walking. These are temporary needs and are intended to prevent injuries due to falls. You may discontinue them when you feel strong and steady enough on your feet. * Sleep in a comfortable position. We find that many patients find a lounge chair or recliner with several pillows to be beneficial in the early post-operative period. * The support stockings should be used for 7-10 days and may be discontinued when you are back to walking more and conducting usual household activities. No problem is insignificant. We are here to help you and get you well. Contact us at [phone]. Definitions: Foraminotomy: If part of the disc or a bone spur (osteophyte) is pressing on a nerve as it leaves the vertebra (through an exit called the foramen), a foraminotomy may be done. Otomy means "to make an opening." A foraminotomy is making the opening of the foramen larger, so the nerve can exit without being compressed. Laminotomy: Similar to the foraminotomy, a laminotomy makes a larger opening, this time in your bony plate protecting your spinal canal and spinal cord (the lamina). The lamina may be pressing on your nerve, so the surgeon may make more room for the nerves using a laminotomy. Laminectomy: Sometimes, a laminotomy is not sufficient. The surgeon may need to remove all or part of the lamina. This procedure is called a laminectomy. This can often be done at many levels without any harmful effects. Current Hospital Diet Patient's current hospital diet: Regular Diet Discharge Diet Recommended Diet: Regular Diet Procedures Procedures Performed: L5-S1 Posterior Lumbar Interbody Fusion Pending Studies Studies pending at discharge: no Medical Emergencies . Who to Call and When: Medical Emergencies: If at any time you feel your situation is an emergency, please call 911 immediately. . Non-Emergent Contact Non-Emergency issues call your: Primary Care Provider . "Provider Documentation" section prepared by Brad Levi. . VTE Core Measure Inpt VTE Proph given/why not?: Treatment not indicated
[2017-03-26 15:06] VITALS: BP 94/59; PULSE 77; TEMP 36.7; O2SAT 97
[2017-03-26 15:30] VITALS: O2SAT 97
[2017-03-26 23:25] VITALS: BP 107/62; PULSE 65; TEMP 36.7; O2SAT 95
[2017-03-27 08:11] VITALS: BP 118/72; PULSE 70; TEMP 36.5; O2SAT 94
[2017-03-27] MEDS: POLYETHYLENE (MIRALAX) 17 GM PACK PO SCH (08:21)
[2017-03-27] MEDS: GABAPENTIN 300 MG CAP PO SCH (08:26)
[2017-03-27] MEDS: OXYCODONE/ACETAMINOPHEN 5-325 TAB PO PRN ×2 (08:27→12:38)
[2017-03-27 10:27] VITALS: BP 118/72; PULSE 70; TEMP 36.5; O2SAT 94
[2017-03-27] MEDS ORDERED: HYDR-4383 PO (12:43)
--- NOTE | 2017-03-27 13:52 | DISCHARGE SUMMARY ---
SUBJECTIVE: She is alert, oriented. No complaints. Some back incisional pain. No shortness of breath, chest pain. No confusion. ASSESSMENT: Status post 48 hours from a PLIF procedure lumbar spine, which is a posterior lumbar interbody fusion. Doing well in the short run. DISPOSITION: We will let her go home later today. Instructions, precautions education provided. Back brace for support. We will see her back in the office in 10 days.
== END 2017-03-27 14:03 | disposition home or self-care (01) | DRG 455 ==
LOC: C.ACU 05:26 → C.3E 07:16 → ENRESERV 11:09
PROVIDERS: ADMIT Orthopaedic Surgery Orthopaedic Surgery of the Spine; ATTEND Orthopaedic Surgery Orthopaedic Surgery of the Spine
PROC: 0SG30AJ Fusion of Lumbosacral Joint with Interbody Fusion Device, Posterior Approach, Anterior Column, Open Approach (ICD-10-PCS; principal; 2017-03-25 07:30)
PROC: 0SG3071 Fusion of Lumbosacral Joint with Autologous Tissue Substitute, Posterior Approach, Posterior Column, Open Approach (ICD-10-PCS; principal; 2017-03-25 07:30)
PROC: 0ST40ZZ Resection of Lumbosacral Disc, Open Approach (ICD-10-PCS; principal; 2017-03-25 07:30)
DX: M53.2X7 Spinal instabilities, lumbosacral region (principal); M51.27 Other intervertebral disc displacement, lumbosacral region; I10 Essential (primary) hypertension; G62.9 Polyneuropathy, unspecified; Z23 Encounter for immunization; Z79.3 Long term (current) use of hormonal contraceptives; Z79.891 Long term (current) use of opiate analgesic; Z79.899 Other long term (current) drug therapy

== ENCOUNTER → 2017-07-09 | Outpatient (CLI) | payer OTHER ==
[~2017-07-09] MED LIST changes: +HYDR-4383 PO; -TRAM-10 PO
== END | disposition home or self-care (01) ==
LOC: C.PAPS 14:25
PROVIDERS: ATTEND Obstetrics & Gynecology
DX: Z12.4 Encounter for screening for malignant neoplasm of cervix (principal)

== ENCOUNTER → 2017-07-21 | Outpatient (CLI) | payer OTHER ==
[~2017-07-21] MED LIST changes: +NORE0.3537 PO; -NORETAB25 PO
--- NOTE | 2017-07-21 09:21 | DIAGNOSTIC IMAGING REPORT ---
TRANSVAG-FEMALE PELVIS HISTORY: 42 years-old Female ABNORMAL UTERINE BLEEDING acute vaginal bleeding COMPARISON: None available TECHNIQUE: Multiple real-time sonographic images of the deep pelvic structures were obtained transvaginally assessing grayscale appearance, color and spectral flow. Transabdominal images were not obtained secondary to patient wishes. FINDINGS: Anteflexed uterus measures 9.2 x 5.1 x 4.3 cm with nabothian cysts noted. Ill-defined slightly hypoechoic intramural fibroid of the posterior mid to lower uterine segment measuring 1.4 cm in greatest dimension. Uterus appears mildly heterogeneous throughout. Endometrium measures 6 mm in thickness and is unremarkable. Right ovary measures 2.3 x 1.3 x 1.6 cm and is unremarkable with arterial inflow documented. Left ovary measures 2.9 x 2.9 x 3.6 cm. Follicle of the left ovary measures 1.7 cm in greatest dimension. Cystic lesion suggesting dominant follicle of the left ovary measures 2.2 x 2.4 x 1.8 cm. Arterial inflow to the left ovary is documented. No significant free pelvic fluid. IMPRESSION: 1. Mildly heterogeneous appearance of the uterus with 1.4 cm intramural fibroid of the posterior mid to lower uterine segment. 2. Normal appearance of the endometrium. 3. Cystic lesion of the left ovary suggests dominant ovarian follicle, 2.4 cm. 4. No evidence of ovarian torsion. The above report was generated using voice recognition software. It may contain grammatical, syntax or spelling errors. Electronically signed by: Chiki Dumont M.D. 07/21/2017 9:20 AM Dictated Date/Time: 07/21/2017 9:15 AM
[2017-07-21 09:57] LABS: HEMATOCRIT 42.5 % (37-47); HEMOGLOBIN 14.1 g/dL (12.0-16.0); MEAN CELL VOLUME 88.9 fL (80-100); MEAN CORPUSCULAR HEMOGLOBIN 29.5 pg (25-34); MEAN CORPUSCULAR HGB CONC 33.2 g/dl (32-36); MEAN PLATELET VOLUME 12.2 fL (7.4-10.4); PLATELET COUNT 271 K/uL (130-400); RED CELL DISTRIBUTION WIDTH SD 38.7 fL (36.4-46.3)
[2017-07-21 10:06] LABS: PTT PATIENT 28.9 SECONDS (21.0-31.0)
== END | disposition home or self-care (01) ==
LOC: C.ULTR 08:32
PROVIDERS: ATTEND Obstetrics & Gynecology
DX: N93.9 Abnormal uterine and vaginal bleeding, unspecified (principal); D25.9 Leiomyoma of uterus, unspecified